=== PATIENT | male | born 1955 | race Caucasian/White ===

== ENCOUNTER 2020-12-23 12:15 | Day surgery (SDC) | payer BC ==
[~2020-12-23] VITALS: Ht 188 cm; Wt 106.1 kg
[2020-12-23] MEDS ORDERED: [UNRECOGNIZED DRUG - OTHER] PO (12:38)
[2020-12-23] MEDS ORDERED: SILD25TA PO (12:38)
[2020-12-23] MEDS ORDERED: APIX5TAB3 PO (12:38)
[2020-12-23 12:40] VITALS: BP 131/74
[2020-12-23] MEDS ORDERED: normal saline 1000ml 1,000 ML IV PRN (12:45)
[2020-12-23 13:10] LABS: BASOPHILS % (AUTO) 0.4 % (0-1); EOSINOPHILS # (AUTO) 0.1 X10'3 (0-0.9); EOSINOPHILS % (AUTO) 1.7 % (0-6); HEMATOCRIT 40.8 % (42.0-52.0); HEMOGLOBIN 13.9 g/dl (14.0-17.9); MEAN CORPUSCULAR HEMOGLOBIN 30.8 PG (27.0-31.0); MEAN CORPUSCULAR HGB CONC 34.1 g/dL (33.0-36.5); MEAN CORPUSCULAR VOLUME 90.5 FL (78-98); MEAN PLATELET VOLUME 7.1 FL (7.4-10.4); MONOCYTES # (AUTO) 1.1 X10'3 (0-0.9); MONOCYTES % (AUTO) 15.3 % (2-12); NEUTROPHILS # (AUTO) 4.8 X10'3 (1.8-7.7); NEUTROPHILS % (AUTO) 68.6 % (42-75); PLATELET COUNT 176 X10'3 (140-440); RED BLOOD COUNT 4.51 X10'6 (4.70-6.10); RED CELL DISTRIBUTION WIDTH 18.1 % (11.5-14.5)
[2020-12-23] MEDS ORDERED: iohexol 300 MG/1 ML 50ml polymer ONE (13:20)
[2020-12-23] MEDS ORDERED: midazolam 1 mg/ML 2ml injection ONE ×2 (13:20→13:41)
[2020-12-23] MEDS ORDERED: LIDOcaine 1%/PF 5ML 10 MG/ML VIAL ONE (13:20)
[2020-12-23] MEDS ORDERED: fentaNYL/PF 50MCG/1 ML 2ML syringe ONE ×2 (13:20→13:41)
[2020-12-23] MEDS ORDERED: heparin 1,000 UNITS/NS 500ml 500 ML ONE (13:21)
[2020-12-23 13:23] LABS: ALBUMIN 3.5 G/DL (3.4-5.0); ANION GAP 10 (8-16); BLOOD UREA NITROGEN 13 MG/DL (7-18); BUN/CREATININE RATIO 19.4 (5.4-32.0); CALCIUM 8.6 MG/DL (8.5-10.1); CHLORIDE 105 MMOL/L (99-107); CREATININE 0.67 MG/DL (0.60-1.10); GLUCOSE 102 MG/DL (70-104); SODIUM 141 MMOL/L (135-145); eGFR > 90 ML/MIN
[2020-12-23 13:55] LABS: TOTAL CELLS COUNTED 100
[2020-12-23 13:56] LABS: ANISOCYTOSIS 2+; PLATELET ESTIMATE NORMAL
[2020-12-23] MEDS ORDERED: normal saline 1000ml 1,000 ML IV SCH (14:30)
[2020-12-23 14:45] VITALS: BP 127/82
[2020-12-23 15:00] VITALS: BP 138/79
[2020-12-23 15:15] VITALS: BP 133/75
[2020-12-23 15:30] VITALS: BP 144/84
== END 2020-12-23 15:50 | disposition home or self-care (01) ==
LOC: SSTAY O 12:15
PROVIDERS: ATTEND Radiology Diagnostic Radiology
DX: Z46.89 Encounter for fitting and adjustment of other specified devices (principal); Z79.899 Other long term (current) drug therapy
CPT/HCPCS: 36415; 37193; 80048; 85025; 99152; 99153; C1769; C1894; J1644; J2250; J3010; Q9967; 85007